=== PATIENT | male | born 1990 | race Two or more races ===

== ENCOUNTER 2019-09-28 13:25 | Emergency (ER) | payer BC ==
[~2019-09-28] VITALS: Ht 182.9 cm; Wt 136.1 kg
[2019-09-28 14:12] VITALS: BP 159/94
[2019-09-28] MEDS ORDERED: KETOROLAC 30 MG/ML VIAL. IM STA (14:46)
[2019-09-28] MEDS ORDERED: ORPH100T PO (14:51)
--- NOTE | 2019-09-28 14:51 | PHYS DOC ---
Past Medical History Past Medical History: No Pertinent History Past Surgical History: No Surgical History Alcohol Use: None Drug Use: None Adult General Chief Complaint Chief Complaint: LOWER BACK PAIN OR INJURY HPI HPI Patient is a 29 year old male who presents with back pain has been ongoing since Saturday. Patient states he had this back pain before but he year ago and received cortisone injections may help. He states that his pain as 10 out of 10 in severity and sharp. Review of Systems Review of Systems Constitutional: Denies fever or chills [] Eyes: Denies change in visual acuity, redness, or eye pain [] HENT: Denies nasal congestion or sore throat [] Respiratory: Denies cough or shortness of breath [] Cardiovascular: No additional information not addressed in HPI [] GI: Denies abdominal pain, nausea, vomiting, bloody stools or diarrhea [] : Denies dysuria or hematuria [] Musculoskeletal:Reports back pain. Integument: Denies rash or skin lesions [] Neurologic: Denies headache, focal weakness or sensory changes [] Endocrine: Denies polyuria or polydipsia [] Complete systems were reviewed and found to be within normal limits, except as documented in this note. Current Medications Current Medications Current Medications Medications (Trade) Dose Ordered Sig/Angel Start Time Stop Time Status Last Admin Dose Admin Ketorolac Tromethamine (Toradol 30mg Vial) 30 mg 1X STAT 09/28/19 14:46 09/28/19 14:47 UNV Orphenadrine Citrate (Norflex) 60 mg 1X ONCE 09/28/19 15:00 09/28/19 15:01 UNV Physical Exam Physical Exam Constitutional: Well developed, well nourished, no acute distress, non-toxic appearance. [] HENT: Normocephalic, atraumatic, bilateral external ears normal, oropharynx moist, no oral exudates, nose normal. [] Eyes: PERRLA, EOMI, conjunctiva normal, no discharge. [] Neck: Normal range of motion, no tenderness, supple, no stridor. [] Cardiovascular:Heart rate regular rhythm, no murmur [] Lungs & Thorax: Bilateral breath sounds clear to auscultation [] Abdomen: Bowel sounds normal, soft, no tenderness, no masses, no pulsatile masses. [] Skin: Warm, dry, no erythema, no rash. [] Back: L spine tenderness. Extremities: No tenderness, no cyanosis, no clubbing, ROM intact, no edema. [] Neurologic: Alert and oriented X 3, normal motor function, normal sensory function, no focal deficits noted. [] Psychologic: Affect normal, judgement normal, mood normal. [] Current Patient Data Vital Signs Vital Signs Date Time Temp Pulse Resp B/P (MAP) Pulse Ox O2 Delivery O2 Flow Rate FiO2 09/28/19 14:12 98.5 67 18 159/94 (115) 98 Room Air 98.5 EKG EKG [] Radiology/Procedures Radiology/Procedures [] Course & Med Decision Making Course & Med Decision Making Pertinent Labs and Imaging studies reviewed. (See chart for details) Will give Toradol and Norflex. Will send home with norflex. Recommended to follow up with PCP for MRI. Denies trauma. Dragon Disclaimer Dragon Disclaimer This electronic medical record was generated, in whole or in part, using a voice recognition dictation system. Departure Departure Impression: Primary Impression: Back pain Disposition: HOME, SELF-CARE Condition: STABLE Referrals: NO PCP (PCP) Patient Instructions: Back Pain, Adult Additional Instructions: Thank you for visiting [facility]. We appreciate you trusting us with your care. If any additional problems come up don't hesitate to return to visit us. Please follow up with your primary care provider so they can plan additional care if needed and know about the problem that you had. If symptoms worsen come back to the Emergency Department. Any concerning symptoms that start such as chest pain, shortness of air, weakness or numbness on one side of the body, running high fevers or any other concerning symptoms return to the ER. Please fill your medications at any pharmacy and follow the prescription instructions. Scripts Orphenadrine Citrate (ORPHENADRINE CITRATE) 100 Mg Tablet.er 100 MG PO BID PRN for MUSCLE PAIN for 7 Days, #14 TAB.SR Prov: DOUGLASSANDERS APRN 09/28/19 Problem Qualifiers Primary Impression: Back pain Back pain location: low back pain Chronicity: acute Back pain laterality: midline Sciatica presence: without sciatica Qualified Codes: M54.5 - Low back pain ANDERS DOUGLASS APRN Sep 28, 2019 14:51
[2019-09-28] MEDS ORDERED: ORPHENADRINE CITRATE 60 MG/2 ML VIAL. IM ONE (15:00)
== END 2019-09-28 15:15 | disposition home or self-care (01) ==
LOC: ER 13:25
DX: M54.5 Low back pain (principal)
CPT/HCPCS: 96372; 99284; J1885; J2360

== ENCOUNTER 2019-11-02 22:36 | Emergency (ER) | payer BC ==
[~2019-11-02] VITALS: Ht 182.9 cm; Wt 127.0 kg
[~2019-11-02 22:36] MED LIST: ORPH100T PO
[2019-11-02 22:40] VITALS: BP 170/84
[2019-11-02] MEDS ORDERED: LIDOCAINE WITH 8.4% SOD BICARB 3 ML DISP.SYRIN. ONE (22:46)
[2019-11-02] MEDS ORDERED: LIDOCAINE WITH 8.4% SOD BICARB 3 ML DISP.SYRIN. INJ ONE (23:15)
[2019-11-02] MEDS ORDERED: TETANUS AND DIPHTHERIA TOX/PF 0.5 ML DISP.SYRIN. VAX IM ONE (23:15)
--- NOTE | 2019-11-02 23:26 | PHYS DOC ---
Past Medical History Past Medical History: No Pertinent History Past Surgical History: No Surgical History Alcohol Use: Occasionally Drug Use: Marijuana Adult General Chief Complaint Chief Complaint: LACERATION/AVULSION HPI HPI Patient is a 29 year old right handed patient who presents to the ED today with left hand laceration, patient accidentally cut himself with a chisel cutting wood. Review of Systems Review of Systems Constitutional: Denies fever or chills [] Musculoskeletal: Denies back pain or joint pain [] Integument: Reports left hand laceration Neurologic: Denies headache, focal weakness or sensory changes [] All other systems were reviewed and found to be within normal limits, except as documented in this note. Current Medications Current Medications Current Medications Medications (Trade) Dose Ordered Sig/Angel Start Time Stop Time Status Last Admin Dose Admin Diphtheria/ Tetanus/Acell Pertussis (Boostrix) 0.5 ml ONCE ONCE 11/02/19 23:30 11/02/19 23:31 Lidocaine HCl (Buffered Lidocaine 1%) 3 ml 1X ONCE 11/02/19 23:15 11/02/19 23:16 DC Tetanus/ Diphtheria Toxoids (Tenivac Syringe) 0.5 ml ONCE ONCE 11/02/19 23:15 11/02/19 23:18 DC Allergies Allergies Allergies Coded Allergies Type Severity Reaction Last Updated Verified No Known Drug Allergies 09/28/19 No Physical Exam Physical Exam Constitutional: Well developed, well nourished, no acute distress, non-toxic appearance. [] Skin: Webspace between the thumb and index finger with a laceration approximately 2-1/2 cm long, there is no obvious tendon involvement. Full range of motion to the left hand and fingers. +2 left radial pulse. Cap refill less than 2 seconds the left fingers. Back: No tenderness, no CVA tenderness. [] Extremities: No tenderness, no cyanosis, no clubbing, ROM intact, no edema. [] Neurologic: Alert and oriented X 3, normal motor function, normal sensory function, no focal deficits noted. [] Psychologic: Affect normal, judgement normal, mood normal. [] Current Patient Data Vital Signs Vital Signs Date Time Temp Pulse Resp B/P (MAP) Pulse Ox O2 Delivery O2 Flow Rate FiO2 11/02/19 22:40 98.3 102 20 170/84 (112) 97 Room Air 98.3 EKG EKG [] Radiology/Procedures Radiology/Procedures Laceration/Wound Repair Wound Location: Left hand Wound's Depth, Shape: Horizontal Wound Length (cm): Approximately 2-1/2 Wound Explored: clean Irrigated w/ Saline (ccs): 100 Betadine Prep?: Y Anesthesia: One percent of buffered lidocaine Volume Anesthetic (ccs): 3 mL Wound Repaired With: Vicryl Suture Size/Type: 3.0/interrupted sutures Number of Sutures: 5 Progress : Wound was covered with nonstick dressing Course & Med Decision Making Course & Med Decision Making Pertinent Labs and Imaging studies reviewed. (See chart for details) This is a 29-year-old male patient with left hand laceration that was closed as noted in procedures, tetanus updated. Wound care instructions and return precautions provided. Dragon Disclaimer Dragon Disclaimer This electronic medical record was generated, in whole or in part, using a voice recognition dictation system. Departure Departure Impression: Primary Impression: Laceration of left hand Disposition: HOME, SELF-CARE Condition: STABLE Referrals: NO PCP (PCP) Follow up with your doctor in 1-2 weeks as needed Patient Instructions: Laceration Care, Adult, [id number] Additional Instructions: You have left hand laceration that was closed with dissolvable stitches, keep them clean and dry. Apply Neosporin to the area twice a day. Monitor the area for any signs of infection including but not limited to increased redness, warmth, yellow drainage from the area and return to the ED if they occur or see your own doctor Problem Qualifiers Primary Impression: Laceration of left hand Encounter type: initial encounter Foreign body presence: without foreign body Qualified Codes: S61.412A - Laceration without foreign body of left hand, initial encounter LAM PIZANO [employer]TENA[employer]CE PERSON Nov 02, 2019 23:26
[2019-11-02] MEDS ORDERED: DIPHTH,PERTUSS(ACELL),TET TOX 0.5 ML DISP.SYRIN. VAX IM ONE (23:30)
== END 2019-11-02 23:46 | disposition home or self-care (01) ==
LOC: ER 22:36
DX: S61.412A Laceration without foreign body of left hand, initial encounter (principal); F12.90 Cannabis use, unspecified, uncomplicated; W27.8XXA Contact with other nonpowered hand tool, initial encounter; Y93.89 Activity, other specified; Y92.89 Other specified places as the place of occurrence of the external cause; Y99.8 Other external cause status
CPT/HCPCS: 12001; 90471; 90715; 99283